=== PATIENT | male | born 1945 | race Caucasian/White ===

== ENCOUNTER 2018-12-21 16:13 | Inpatient (IN) | payer MEDICARE, MEDICAID ==
--- NOTE | 2018-12-21 19:26 | NUR ---
Patient refused admission. Patient refused initial assessments and to undergo any admission process. Patient stated that he does not like the room and he cannot stay here. Wanted to leave. Patient called taxi. Informed Dr Spencer of [place]. Dr lowery. Patient left ambulatory per cane and assisted to lobby. Not in any form of distress. Denies any pain.
[2018-12-21 19:32] VITALS: BP 157/89
== END 2018-12-21 19:26 | disposition left against medical advice (07) | DRG 561 ==
PROVIDERS: ADMIT Internal Medicine Nephrology; ATTEND Physical Medicine & Rehabilitation Pain Medicine
DX: Z47.1 Aftercare following joint replacement surgery (principal); Z96.651 Presence of right artificial knee joint; Z53.21 Procedure and treatment not carried out due to patient leaving prior to being seen by health care provider